=== PATIENT | female | born 1955 | race Caucasian/White ===

== ENCOUNTER 2021-12-11 08:40 | Inpatient (IN) ==
[2021-12-11] MEDS ORDERED: LORazepam 2 MG/1 ML VIAL IV STA ×2 (08:59→11:55)
[2021-12-11] MEDS ORDERED: SODIUM CHLORIDE 0.9% 1,000 ML IV STA ×2 (08:59→13:30)
[2021-12-11 09:44] LABS: Basophils # 0.1 10*3/uL (0.0-0.2); Basophils % 0.3 % (0.0-0.8); Hematocrit 30.9 VOL% (35.7-47.0); Hemoglobin 9.9 GM/DL (12.0-16.0); Immature Granulocytes % 0.9 %; Immature Granulocytes Absolute 0.14 #; Lymphocytes # 1.8 10*3/uL (1.4-4.0); Lymphocytes % 11.2 % (21.3-54.2); Mean Corpuscular Volume 106.2 FL (87-102); Mean Platelet Volume 9.4 FL (9.6-12.0); Monocytes # 0.9 10*3/uL (0.11-0.8); Monocytes % 5.8 % (1.7-12.7); Neutrophils % 81.8 % (38.7-73.9); Platelet Count 293 T/CUMM (130-400); Red Blood Count 2.91 MC/CUMM (3.8-5.5); Red Cell Distribution Width 16.6 % (9.3-17.3); White Blood Count 15.7 T/CUMM (4-12)
[2021-12-11 10:05] LABS: Albumin 3.4 G/DL (3.4-5.0); Bilirubin,Total 0.5 MG/DL (0.20-1.00); Calcium 7.9 MG/DL (8.5-10.1); Osmolality,Calculated 307.3 MOS/KG (273-304); Potassium 3.7 MMOL/L (3.5-5.1); Total Protein 6.7 G/DL (6.4-8.2)
[2021-12-11] MEDS ORDERED: LEVOFLOXACIN INJ 750 MG in PREMIX 1 EACH IV STA (10:21)
[2021-12-11 10:41] LABS: Amorphous Crystals,Urine Few /HPF (Few); Bilirubin,Urine Negative (Negative); Blood, Urine Negative (Negative); Glucose,Urine (UA) Negative (Negative); Hyaline Casts,Urine 9 /LPF (0-3); Ketones,Urine 20 mg/dL (Negative); Mucus,Urine Occasional /LPF (Occasional); Nitrite,Urine Negative (Negative); Protein,Urine Negative (Negative); RBC,Urine <1 /HPF (0-4); Urine Appearance CLEAR (Clear); Urine Color Yellow (Yellow); Urine Specific Gravity 1.027 (1.001-1.035); Urine Urobilinogen < 2.0 eU/dL (<2.0)
[2021-12-11 10:47] LABS: Barbiturates Screen,Urine Negative (Negative); Benzodiazepines Screen,Urine Negative (Negative); Cannabinoid Screen,Urine Negative (Negative); Opiate Screen,Urine Negative (Negative); Phencyclidine Screen,Urine Negative (Negative)
[2021-12-11] MEDS ORDERED: ALBUTEROL 2.5 MG/3 ML NEB RESP TX PRN (12:43)
[2021-12-11] MEDS ORDERED: NALOXONE 0.4 MG/ML VIAL IV STA (12:50)
[2021-12-11 13:06] LABS: Arterial Base Excess iSTAT -13 MMOL/L (-2.5-2.5); Arterial Bicarbonate iSTAT 13.5 MMOL/L (20-26); Arterial O2 Saturation iSTAT 49 % (95-100); Arterial PCO2 iSTAT 35 MM HG (35-48); Arterial PO2 iSTAT 32 MM HG (80-95); Arterial Total CO2 iSTAT 15 MMO/L (23-27); Arterial pH iSTAT 7.202 (7.35-7.45)
[2021-12-11] MEDS ORDERED: ROCURONIUM 100 MG/10 ML VIAL IV STA (13:09)
[2021-12-11 13:11] LABS: Folate > 24.00 NG/ML (5.38-24.0); Free T4 (Free Thyroxine) 0.51 NG/DL (0.76-1.46); Thyroid Stimulating Hormone 1.04 uIU/ml (0.358-3.74); Vitamin B12 324 PG/ML (211-911)
[2021-12-11] MEDS ORDERED: ETOMIDATE 20 MG/10 ML VIAL IV ONE ×2 (13:18→13:19)
[2021-12-11] MEDS ORDERED: methylPREDNISolone SOD SUC 125 MG/2 ML VIAL IV STA (13:19)
[2021-12-11] MEDS ORDERED: ROCURONIUM 100 MG/10 ML VIAL IV ONE (13:19)
[2021-12-11] MEDS: PANTOPRAZOLE 40 MG VIAL IV SCH (14:07)
[2021-12-11 14:10] LABS: Arterial Base Excess iSTAT -13 MMOL/L (-2.5-2.5); Arterial Bicarbonate iSTAT 15.7 MMOL/L (20-26); Arterial O2 Saturation iSTAT 100 % (95-100); Arterial PCO2 iSTAT 48 MM HG (35-48); Arterial PO2 iSTAT 325 MM HG (80-95); Arterial Total CO2 iSTAT 17 MMO/L (23-27); Arterial pH iSTAT 7.123 (7.35-7.45)
[2021-12-11] MEDS ORDERED: SODIUM BICARBONATE 50 MEQ/50 ML VIAL IV ONE (14:33)
[2021-12-11] MEDS ORDERED: CHARCOAL AQUEOUS 25 GM/120 ML BOTTLE PO ONE ×2 (14:37→15:00)
[2021-12-11 14:38] LABS: Calcium 7.6 MG/DL (8.5-10.1); Osmolality,Calculated 304.4 MOS/KG (273-304); Potassium 3.7 MMOL/L (3.5-5.1)
[2021-12-11] MEDS ORDERED: PIPERACILLIN/TAZOBACTAM 3,375 MG in SODIUM CHLORIDE 0.9% 100 ML IV SCH (15:00)
[2021-12-11 15:03] LABS: PT Patient Result 11.2 SECS (10.1-12.1); Partial Thromboplastin Time 29.6 SECS (23.7-32.9)
[2021-12-11 15:14] LABS: Calcium 7.3 MG/DL (8.5-10.1); Potassium 3.8 MMOL/L (3.5-5.1)
[2021-12-11] MEDS: SODIUM BICARB INJ 100 MEQ in DEXTROSE 5% 1,000 ML IV SCH (15:15)
[2021-12-11] MEDS: ENOXAPARIN 40 MG/0.4 ML SYRINGE SUBCUT SCH (15:15)
[2021-12-11] MEDS: CEFEPIME 1,000 MG in SODIUM CHLORIDE 0.9% 100 ML IV SCH (16:12)
[2021-12-11 18:29] LABS: Arterial Base Excess iSTAT -8 MMOL/L (-2.5-2.5); Arterial Bicarbonate iSTAT 16.7 MMOL/L (20-26); Arterial O2 Saturation iSTAT 99 % (95-100); Arterial PCO2 iSTAT 32 MM HG (35-48); Arterial PO2 iSTAT 145 MM HG (80-95); Arterial Total CO2 iSTAT 18 MMO/L (23-27); Arterial pH iSTAT 7.328 (7.35-7.45)
[2021-12-11] MEDS ORDERED: oxyCODONE IR 5 MG TABLET PO PRN (18:50)
[2021-12-11] MEDS: ALBUTEROL/IPRATROPIUM 3 ML NEB RESP TX SCH ×2 (19:22→23:56)
[2021-12-11] MEDS: MORPHINE 2 MG/1 ML SYRINGE IV PRN (19:34)
[2021-12-11 20:09] LABS: Calcium 6.9 MG/DL (8.5-10.1); Potassium 3.1 MMOL/L (3.5-5.1)
[2021-12-11] MEDS: methylPREDNISolone SOD SUC 40 MG/1 ML VIAL IV SCH (20:54)
[2021-12-11] MEDS: DULoxetine 30 MG CAPSULE PO SCH (20:54)
[2021-12-11] MEDS: GABAPENTIN 300 MG CAPSULE PO SCH (20:54)
[2021-12-11] MEDS ORDERED: CALCIUM GLUCONATE RIDER 1,000 MG/50 ML PREMIX IV ONE (20:56)
[2021-12-11] MEDS ORDERED: POTASSIUM CHLORIDE RIDER 10 MEQ/100 ML PREMIX IV PRN (20:57)
[2021-12-11] MEDS: POTASSIUM CHLORIDE RIDER 20 MEQ/100 ML PREMIX IV PRN ×2 (21:27→23:37)
[2021-12-11] MEDS ORDERED: MIDAZOLAM 10 MG/2 ML VIAL ONE (22:02)
[2021-12-11] MEDS ORDERED: MIDAZOLAM 2 MG/2 ML VIAL IV ONE (22:02)
[2021-12-11] MEDS: MIDAZOLAM 100 MG in SODIUM CHLORIDE 0.9% 80 ML IV PRN (22:16)
[2021-12-12] MEDS ORDERED: NOREPINEPHRINE 4 MG/4 ML VIAL IV ONE ×2 (01:45→13:43)
[2021-12-12] MEDS: NOREPINEPHRINE 8 MG in SODIUM CHLORIDE 0.9% 242 ML IV PRN ×3 (02:01→22:22)
[2021-12-12] MEDS: SODIUM BICARB INJ 100 MEQ in DEXTROSE 5% 1,000 ML IV SCH ×2 (02:14→12:32)
[2021-12-12] MEDS: CEFEPIME 1,000 MG in SODIUM CHLORIDE 0.9% 100 ML IV SCH ×3 (02:19→16:00)
[2021-12-12 04:22] LABS: Arterial Base Excess iSTAT -1 MMOL/L (-2.5-2.5); Arterial Bicarbonate iSTAT 22.6 MMOL/L (20-26); Arterial O2 Saturation iSTAT 100 % (95-100); Arterial PCO2 iSTAT 32 MM HG (35-48); Arterial PO2 iSTAT 185 MM HG (80-95); Arterial Total CO2 iSTAT 24 MMO/L (23-27); Arterial pH iSTAT 7.451 (7.35-7.45)
[2021-12-12] MEDS: MORPHINE 2 MG/1 ML SYRINGE IV PRN ×2 (04:30→07:01)
[2021-12-12 04:48] LABS: Basophils % 0.1 % (0.0-0.8); Hematocrit 25.3 VOL% (35.7-47.0); Hemoglobin 8.1 GM/DL (12.0-16.0); Immature Granulocytes Absolute 0.16 #; Lymphocytes # 1.9 10*3/uL (1.4-4.0); Lymphocytes % 11.7 % (21.3-54.2); Mean Corpuscular Volume 105.4 FL (87-102); Mean Platelet Volume 9.9 FL (9.6-12.0); Monocytes # 1.2 10*3/uL (0.11-0.8); Monocytes % 7.5 % (1.7-12.7); Neutrophils % 79.7 % (38.7-73.9); Platelet Count 294 T/CUMM (130-400); Red Cell Distribution Width 16.5 % (9.3-17.3); White Blood Count 16.3 T/CUMM (4-12)
[2021-12-12 05:06] LABS: Alanine Aminotransferase 43 U/L (13-56); Albumin 2.8 G/DL (3.4-5.0); Alkaline Phosphatase 95 U/L (45-117); Aspartate Amino Transferase 45 U/L (0-37); Bilirubin,Total < 0.39 MG/DL (0.20-1.00); Blood Urea Nitrogen 33 MG/DL (7-18); Carbon Dioxide 23 MMOL/L (21-32); Chloride 119 MMOL/L (98-107); Glucose 132 MG/DL (74-106); Osmolality,Calculated 304.1 MOS/KG (273-304); Potassium 3.2 MMOL/L (3.5-5.1); Sodium 149 MMOL/L (136-145); Total Protein 5.7 G/DL (6.4-8.2)
[2021-12-12] MEDS: methylPREDNISolone SOD SUC 40 MG/1 ML VIAL IV SCH ×3 (05:27→20:34)
[2021-12-12] MEDS: LEVOTHYROXINE 25 MCG TABLET PO SCH (05:27)
[2021-12-12] MEDS: POTASSIUM CHLORIDE RIDER 20 MEQ/100 ML PREMIX IV PRN ×2 (05:51→07:47)
[2021-12-12] MEDS: ALBUTEROL/IPRATROPIUM 3 ML NEB RESP TX SCH ×3 (07:05→19:19)
[2021-12-12] MEDS: GABAPENTIN 300 MG CAPSULE PO SCH ×2 (08:07→20:34)
[2021-12-12] MEDS: DULoxetine 30 MG CAPSULE PO SCH (08:22)
[2021-12-12] MEDS ORDERED: LACTATED RINGERS 1,000 ML IV ONE (08:33)
[2021-12-12] MEDS: QUEtiapine 100 MG TABLET PO SCH ×2 (08:38→20:34)
[2021-12-12] MEDS ORDERED: MORPHINE 2 MG/1 ML SYRINGE IV ONE (08:51)
[2021-12-12] MEDS ORDERED: QUEtiapine XR 50 MG TABLET PO SCH (09:00)
[2021-12-12] MEDS: fentaNYL INJ 1,250 MCG in SODIUM CHLORIDE 0.9% 225 ML IV PRN (09:08)
[2021-12-12] MEDS ORDERED: DEXTROSE 10% 250 ML BAG IV PRN (09:34)
[2021-12-12] MEDS ORDERED: GLUCAGON 1 MG VIAL IM PRN (09:34)
[2021-12-12 11:57] LABS: Arterial Base Excess iSTAT -1 MMOL/L (-2.5-2.5); Arterial Bicarbonate iSTAT 23.1 MMOL/L (20-26); Arterial O2 Saturation iSTAT 98 % (95-100); Arterial PCO2 iSTAT 35 MM HG (35-48); Arterial PO2 iSTAT 104 MM HG (80-95); Arterial Total CO2 iSTAT 24 MMO/L (23-27); Arterial pH iSTAT 7.433 (7.35-7.45)
[2021-12-12] MEDS: INSULIN LISPRO 100 UNIT/ML SUBCUT SCH ×2 (12:13→17:49)
[2021-12-12] MEDS: PANTOPRAZOLE 40 MG VIAL IV SCH (12:30)
[2021-12-12] MEDS: POTASSIUM BICARB EFFERVESCENT 20 MEQ TAB.EFF PER TUBE PRN ×2 (13:49→15:49)
[2021-12-12] MEDS: ENOXAPARIN 40 MG/0.4 ML SYRINGE SUBCUT SCH (14:00)
[2021-12-12] MEDS: MIDAZOLAM 100 MG in SODIUM CHLORIDE 0.9% 80 ML IV PRN (14:07)
[2021-12-13] MEDS: ALBUTEROL/IPRATROPIUM 3 ML NEB RESP TX SCH ×5 (00:27→23:50)
[2021-12-13] MEDS: CEFEPIME 1,000 MG in SODIUM CHLORIDE 0.9% 100 ML IV SCH ×3 (00:33→16:10)
[2021-12-13] MEDS: INSULIN LISPRO 100 UNIT/ML SUBCUT SCH ×4 (00:33→18:20)
[2021-12-13 04:49] LABS: Basophils % 0.1 % (0.0-0.8); Hematocrit 26.7 VOL% (35.7-47.0); Hemoglobin 8.3 GM/DL (12.0-16.0); Immature Granulocytes % 1.3 %; Immature Granulocytes Absolute 0.19 #; Lymphocytes # 1.1 10*3/uL (1.4-4.0); Lymphocytes % 7.8 % (21.3-54.2); Mean Corpuscular HGB Conc 31.1 GM/DL (32-36); Mean Corpuscular Volume 108.1 FL (87-102); Mean Platelet Volume 9.8 FL (9.6-12.0); Monocytes # 0.8 10*3/uL (0.11-0.8); Monocytes % 5.6 % (1.7-12.7); NRBC # 0.04 10*3/uL; Neutrophils % 85.2 % (38.7-73.9); Platelet Count 318 T/CUMM (130-400); Red Blood Count 2.47 MC/CUMM (3.8-5.5); Red Cell Distribution Width 16.5 % (9.3-17.3); White Blood Count 14.2 T/CUMM (4-12)
[2021-12-13 05:03] LABS: Alanine Aminotransferase 37 U/L (13-56); Albumin 2.8 G/DL (3.4-5.0); Alkaline Phosphatase 79 U/L (45-117); Aspartate Amino Transferase 31 U/L (0-37); Bilirubin,Total < 0.39 MG/DL (0.20-1.00); Blood Urea Nitrogen 28 MG/DL (7-18); Calcium 8.1 MG/DL (8.5-10.1); Carbon Dioxide 23 MMOL/L (21-32); Chloride 114 MMOL/L (98-107); Glucose 176 MG/DL (74-106); Osmolality,Calculated 297.7 MOS/KG (273-304); Potassium 4.2 MMOL/L (3.5-5.1); Sodium 145 MMOL/L (136-145); Total Protein 5.7 G/DL (6.4-8.2)
[2021-12-13 06:15] LABS: Arterial Base Excess iSTAT -2 MMOL/L (-2.5-2.5); Arterial Bicarbonate iSTAT 22.6 MMOL/L (20-26); Arterial O2 Saturation iSTAT 99 % (95-100); Arterial PCO2 iSTAT 36 MM HG (35-48); Arterial PO2 iSTAT 139 MM HG (80-95); Arterial Total CO2 iSTAT 24 MMO/L (23-27); Arterial pH iSTAT 7.412 (7.35-7.45)
[2021-12-13] MEDS: MIDAZOLAM 100 MG in SODIUM CHLORIDE 0.9% 80 ML IV PRN ×2 (06:20→23:34)
[2021-12-13] MEDS: methylPREDNISolone SOD SUC 40 MG/1 ML VIAL IV SCH ×3 (06:40→20:30)
[2021-12-13] MEDS: LEVOTHYROXINE 25 MCG TABLET PO SCH (06:41)
[2021-12-13] MEDS: NOREPINEPHRINE 8 MG in SODIUM CHLORIDE 0.9% 242 ML IV PRN (06:51)
[2021-12-13] MEDS: GABAPENTIN 300 MG CAPSULE PO SCH ×2 (09:09→20:16)
[2021-12-13] MEDS: QUEtiapine 100 MG TABLET PO SCH ×2 (09:09→20:16)
[2021-12-13] MEDS ORDERED: LACTATED RINGERS 1,000 ML IV ONE (10:03)
[2021-12-13] MEDS ORDERED: POTASSIUM PHOSPHATE 15 MMOL in SODIUM CHLORIDE 0.9% 100 ML IV ONE (11:00)
[2021-12-13] MEDS: PANTOPRAZOLE 40 MG VIAL IV SCH (12:02)
[2021-12-13] MEDS: ENOXAPARIN 40 MG/0.4 ML SYRINGE SUBCUT SCH (15:34)
[2021-12-13] MEDS: POTASSIUM PHOS/SOD PHOS POWDER 250 MG PACK PER TUBE SCH (20:16)
[2021-12-14] MEDS: INSULIN LISPRO 100 UNIT/ML SUBCUT SCH ×5 (00:09→23:47)
[2021-12-14] MEDS: CEFEPIME 1,000 MG in SODIUM CHLORIDE 0.9% 100 ML IV SCH ×3 (00:10→17:12)
[2021-12-14 04:02] LABS: Basophils % 0.1 % (0.0-0.8); Hematocrit 23.3 VOL% (35.7-47.0); Hemoglobin 7.2 GM/DL (12.0-16.0); Immature Granulocytes % 1.3 %; Immature Granulocytes Absolute 0.14 #; Lymphocytes # 1.3 10*3/uL (1.4-4.0); Lymphocytes % 12.4 % (21.3-54.2); Mean Corpuscular HGB Conc 30.9 GM/DL (32-36); Mean Corpuscular Volume 109.4 FL (87-102); Mean Platelet Volume 9.9 FL (9.6-12.0); Monocytes # 0.5 10*3/uL (0.11-0.8); Monocytes % 4.6 % (1.7-12.7); NRBC # 0.05 10*3/uL; Neutrophils % 81.6 % (38.7-73.9); Platelet Count 224 T/CUMM (130-400); Red Blood Count 2.13 MC/CUMM (3.8-5.5); Red Cell Distribution Width 16.4 % (9.3-17.3); White Blood Count 10.5 T/CUMM (4-12)
[2021-12-14 04:07] LABS: Arterial Base Excess iSTAT -2 MMOL/L (-2.5-2.5); Arterial Bicarbonate iSTAT 22.7 MMOL/L (20-26); Arterial O2 Saturation iSTAT 80 % (95-100); Arterial PCO2 iSTAT 35 MM HG (35-48); Arterial PO2 iSTAT 43 MM HG (80-95); Arterial Total CO2 iSTAT 24 MMO/L (23-27); Arterial pH iSTAT 7.421 (7.35-7.45)
[2021-12-14 04:19] LABS: Calcium 8.1 MG/DL (8.5-10.1); Osmolality,Calculated 291.8 MOS/KG (273-304); Phosphorous 1.8 MG/DL (2.5-4.9); Potassium 4.4 MMOL/L (3.5-5.1)
[2021-12-14 04:27] LABS: Arterial Base Excess iSTAT -2 MMOL/L (-2.5-2.5); Arterial Bicarbonate iSTAT 22.4 MMOL/L (20-26); Arterial O2 Saturation iSTAT 98 % (95-100); Arterial PCO2 iSTAT 36 MM HG (35-48); Arterial PO2 iSTAT 107 MM HG (80-95); Arterial Total CO2 iSTAT 23 MMO/L (23-27); Arterial pH iSTAT 7.403 (7.35-7.45)
[2021-12-14] MEDS: methylPREDNISolone SOD SUC 40 MG/1 ML VIAL IV SCH ×3 (05:20→20:30)
[2021-12-14] MEDS: LEVOTHYROXINE 25 MCG TABLET PO SCH (05:20)
[2021-12-14] MEDS: ALBUTEROL/IPRATROPIUM 3 ML NEB RESP TX SCH ×3 (07:32→19:40)
[2021-12-14] MEDS ORDERED: SODIUM CHLORIDE 0.9% 1,000 ML IV PRN (07:56)
[2021-12-14 08:14] LABS: % Iron Saturation 22.7 % (18-50); Ferritin 128.7 ng/mL (8-252)
[2021-12-14] MEDS: MORPHINE 2 MG/1 ML SYRINGE IV PRN (08:28)
[2021-12-14] MEDS: GABAPENTIN 300 MG CAPSULE PO SCH ×2 (09:33→20:19)
[2021-12-14] MEDS: POTASSIUM PHOS/SOD PHOS POWDER 250 MG PACK PER TUBE SCH ×2 (09:33→20:19)
[2021-12-14] MEDS: QUEtiapine 100 MG TABLET PO SCH ×2 (09:34→20:19)
[2021-12-14] MEDS: PANTOPRAZOLE 40 MG VIAL IV SCH (14:56)
[2021-12-14] MEDS: ENOXAPARIN 40 MG/0.4 ML SYRINGE SUBCUT SCH (14:57)
[2021-12-14] MEDS: NOREPINEPHRINE 8 MG in SODIUM CHLORIDE 0.9% 242 ML IV PRN (17:00)
[2021-12-14] MEDS: MIDAZOLAM 100 MG in SODIUM CHLORIDE 0.9% 80 ML IV PRN (19:54)
[2021-12-14 20:40] LABS: Hematocrit 30.9 VOL% (35.7-47.0); Hemoglobin 10.2 GM/DL (12.0-16.0)
[2021-12-14] MEDS: fentaNYL INJ 1,250 MCG in SODIUM CHLORIDE 0.9% 225 ML IV PRN (20:55)
[2021-12-15] MEDS: CEFEPIME 1,000 MG in SODIUM CHLORIDE 0.9% 100 ML IV SCH ×3 (00:16→16:10)
[2021-12-15] MEDS: ALBUTEROL/IPRATROPIUM 3 ML NEB RESP TX SCH ×4 (00:45→19:05)
[2021-12-15 04:30] LABS: Basophils % 0.1 % (0.0-0.8); Hematocrit 30.5 VOL% (35.7-47.0); Immature Granulocytes Absolute 0.12 #; Lymphocytes # 0.8 10*3/uL (1.4-4.0); Lymphocytes % 6.8 % (21.3-54.2); Mean Corpuscular HGB Conc 32.8 GM/DL (32-36); Mean Corpuscular Volume 97.8 FL (87-102); Mean Platelet Volume 9.8 FL (9.6-12.0); Monocytes # 0.5 10*3/uL (0.11-0.8); Monocytes % 4.4 % (1.7-12.7); NRBC # 0.03 10*3/uL; Neutrophils % 87.7 % (38.7-73.9); Platelet Count 208 T/CUMM (130-400); Red Blood Count 3.12 MC/CUMM (3.8-5.5); Red Cell Distribution Width 21.3 % (9.3-17.3); White Blood Count 11.5 T/CUMM (4-12)
[2021-12-15 04:30] LABS: Arterial Base Excess iSTAT -3 MMOL/L (-2.5-2.5); Arterial Bicarbonate iSTAT 21.4 MMOL/L (20-26); Arterial O2 Saturation iSTAT 93 % (95-100); Arterial PCO2 iSTAT 35 MM HG (35-48); Arterial PO2 iSTAT 66 MM HG (80-95); Arterial Total CO2 iSTAT 22 MMO/L (23-27); Arterial pH iSTAT 7.399 (7.35-7.45)
[2021-12-15 04:44] LABS: Calcium 7.8 MG/DL (8.5-10.1); Osmolality,Calculated 294.6 MOS/KG (273-304); Phosphorous 2.2 MG/DL (2.5-4.9)
[2021-12-15] MEDS: INSULIN LISPRO 100 UNIT/ML SUBCUT SCH ×3 (05:59→18:16)
[2021-12-15] MEDS: LEVOTHYROXINE 25 MCG TABLET PO SCH (06:02)
[2021-12-15] MEDS: methylPREDNISolone SOD SUC 40 MG/1 ML VIAL IV SCH ×2 (06:02→18:14)
[2021-12-15] MEDS ORDERED: FUROSEMIDE 40 MG/4 ML VIAL IV ONE (08:00)
[2021-12-15] MEDS: MORPHINE 2 MG/1 ML SYRINGE IV PRN (08:25)
[2021-12-15] MEDS: FERROUS SULFATE 300 MG/5 ML UDCUP PO SCH (08:26)
[2021-12-15] MEDS: QUEtiapine 100 MG TABLET PO SCH ×2 (08:27→20:15)
[2021-12-15] MEDS: POTASSIUM PHOS/SOD PHOS POWDER 250 MG PACK PER TUBE SCH ×2 (08:27→20:15)
[2021-12-15] MEDS: GABAPENTIN 300 MG CAPSULE PO SCH ×2 (08:27→20:15)
[2021-12-15] MEDS: PANTOPRAZOLE 40 MG VIAL IV SCH (13:32)
[2021-12-15] MEDS: ENOXAPARIN 40 MG/0.4 ML SYRINGE SUBCUT SCH (14:40)
[2021-12-15] MEDS: MIDAZOLAM 100 MG in SODIUM CHLORIDE 0.9% 80 ML IV PRN (16:50)
[2021-12-15] MEDS: fentaNYL INJ 1,250 MCG in SODIUM CHLORIDE 0.9% 225 ML IV PRN (23:25)
[2021-12-16] MEDS: INSULIN LISPRO 100 UNIT/ML SUBCUT SCH ×4 (00:28→17:55)
[2021-12-16] MEDS: ALBUTEROL/IPRATROPIUM 3 ML NEB RESP TX SCH ×4 (00:34→19:22)
[2021-12-16] MEDS: CEFEPIME 1,000 MG in SODIUM CHLORIDE 0.9% 100 ML IV SCH ×2 (00:42→08:15)
[2021-12-16] MEDS: MORPHINE 2 MG/1 ML SYRINGE IV PRN ×3 (02:39→23:50)
[2021-12-16 03:44] LABS: Basophils % 0.1 % (0.0-0.8); Hematocrit 29.6 VOL% (35.7-47.0); Hemoglobin 9.9 GM/DL (12.0-16.0); Immature Granulocytes % 1.8 %; Lymphocytes # 1.2 10*3/uL (1.4-4.0); Lymphocytes % 10.6 % (21.3-54.2); Mean Corpuscular HGB Conc 33.4 GM/DL (32-36); Mean Corpuscular Volume 98.3 FL (87-102); Mean Platelet Volume 9.8 FL (9.6-12.0); Monocytes # 0.4 10*3/uL (0.11-0.8); Monocytes % 3.9 % (1.7-12.7); NRBC # 0.03 10*3/uL; Neutrophils % 83.6 % (38.7-73.9); Platelet Count 193 T/CUMM (130-400); Red Blood Count 3.01 MC/CUMM (3.8-5.5); Red Cell Distribution Width 20.8 % (9.3-17.3); White Blood Count 10.9 T/CUMM (4-12)
[2021-12-16 04:07] LABS: Calcium 7.7 MG/DL (8.5-10.1); Osmolality,Calculated 291.7 MOS/KG (273-304); Potassium 4.1 MMOL/L (3.5-5.1)
[2021-12-16 04:23] LABS: Arterial Base Excess iSTAT 2 MMOL/L (-2.5-2.5); Arterial Bicarbonate iSTAT 26.1 MMOL/L (20-26); Arterial O2 Saturation iSTAT 97 % (95-100); Arterial PCO2 iSTAT 38 MM HG (35-48); Arterial PO2 iSTAT 88 MM HG (80-95); Arterial Total CO2 iSTAT 27 MMO/L (23-27); Arterial pH iSTAT 7.446 (7.35-7.45)
[2021-12-16] MEDS: methylPREDNISolone SOD SUC 40 MG/1 ML VIAL IV SCH ×2 (06:00→17:12)
[2021-12-16] MEDS: LEVOTHYROXINE 25 MCG TABLET PO SCH (06:00)
[2021-12-16] MEDS: FERROUS SULFATE 300 MG/5 ML UDCUP PO SCH (08:15)
[2021-12-16] MEDS: POTASSIUM PHOS/SOD PHOS POWDER 250 MG PACK PER TUBE SCH ×2 (08:15→20:15)
[2021-12-16] MEDS: GABAPENTIN 300 MG CAPSULE PO SCH ×2 (08:15→20:15)
[2021-12-16] MEDS: QUEtiapine 100 MG TABLET PO SCH ×2 (08:16→20:16)
[2021-12-16] MEDS: cefTRIAXone 1,000 MG in SODIUM CHLORIDE 0.9% 100 ML IV SCH (10:28)
[2021-12-16] MEDS ORDERED: FUROSEMIDE 40 MG/4 ML VIAL IV ONE (10:36)
[2021-12-16] MEDS: SENNA 8.6 MG TABLET PO SCH ×2 (10:59→20:15)
[2021-12-16] MEDS: POLYETHYLENE GLYCOL POWDER 17 GM PACK PO SCH (10:59)
[2021-12-16] MEDS: MIDAZOLAM 100 MG in SODIUM CHLORIDE 0.9% 80 ML IV PRN (12:15)
[2021-12-16] MEDS: PANTOPRAZOLE 40 MG VIAL IV SCH (14:00)
[2021-12-16] MEDS: ENOXAPARIN 40 MG/0.4 ML SYRINGE SUBCUT SCH (14:03)
[2021-12-17] MEDS: INSULIN LISPRO 100 UNIT/ML SUBCUT SCH ×4 (00:08→17:09)
[2021-12-17] MEDS: ALBUTEROL/IPRATROPIUM 3 ML NEB RESP TX SCH ×4 (00:16→19:35)
[2021-12-17] MEDS: MIDAZOLAM 100 MG in SODIUM CHLORIDE 0.9% 80 ML IV PRN (02:12)
[2021-12-17 03:54] LABS: Arterial Base Excess iSTAT 7 MMOL/L (-2.5-2.5); Arterial Bicarbonate iSTAT 31.2 MMOL/L (20-26); Arterial O2 Saturation iSTAT 99 % (95-100); Arterial PCO2 iSTAT 40 MM HG (35-48); Arterial PO2 iSTAT 112 MM HG (80-95); Arterial Total CO2 iSTAT 32 MMO/L (23-27); Arterial pH iSTAT 7.497 (7.35-7.45)
[2021-12-17 05:07] LABS: Basophils % 0.2 % (0.0-0.8); Eosinophils % 0.1 % (0.00-10.9); Hematocrit 33.1 VOL% (35.7-47.0); Hemoglobin 10.9 GM/DL (12.0-16.0); Immature Granulocytes % 2.4 %; Lymphocytes # 1.4 10*3/uL (1.4-4.0); Lymphocytes % 11.2 % (21.3-54.2); Mean Corpuscular HGB Conc 32.9 GM/DL (32-36); Mean Corpuscular Volume 99.1 FL (87-102); Mean Platelet Volume 10.2 FL (9.6-12.0); Monocytes # 0.4 10*3/uL (0.11-0.8); Monocytes % 3.1 % (1.7-12.7); Platelet Count 204 T/CUMM (130-400); Red Blood Count 3.34 MC/CUMM (3.8-5.5); Red Cell Distribution Width 19.4 % (9.3-17.3); White Blood Count 12.5 T/CUMM (4-12)
[2021-12-17 05:40] LABS: Calcium 8.2 MG/DL (8.5-10.1); Potassium 3.8 MMOL/L (3.5-5.1)
[2021-12-17] MEDS: methylPREDNISolone SOD SUC 40 MG/1 ML VIAL IV SCH ×2 (06:37→17:03)
[2021-12-17] MEDS: LEVOTHYROXINE 25 MCG TABLET PO SCH (06:38)
[2021-12-17] MEDS: MORPHINE 2 MG/1 ML SYRINGE IV PRN ×4 (06:51→20:48)
[2021-12-17] MEDS: FERROUS SULFATE 300 MG/5 ML UDCUP PO SCH (08:00)
[2021-12-17] MEDS: SENNA 8.6 MG TABLET PO SCH ×2 (08:00→20:48)
[2021-12-17] MEDS: POLYETHYLENE GLYCOL POWDER 17 GM PACK PO SCH (08:00)
[2021-12-17] MEDS: GABAPENTIN 300 MG CAPSULE PO SCH ×2 (08:00→20:48)
[2021-12-17] MEDS: POTASSIUM PHOS/SOD PHOS POWDER 250 MG PACK PER TUBE SCH ×2 (08:00→20:48)
[2021-12-17] MEDS: QUEtiapine 100 MG TABLET PO SCH ×2 (08:00→20:48)
[2021-12-17] MEDS: cefTRIAXone 1,000 MG in SODIUM CHLORIDE 0.9% 100 ML IV SCH (09:31)
[2021-12-17] MEDS ORDERED: FUROSEMIDE 40 MG/4 ML VIAL IV ONE (09:46)
[2021-12-17] MEDS: oxyCODONE IR 5 MG TABLET PO PRN (11:09)
[2021-12-17] MEDS: POTASSIUM BICARB EFFERVESCENT 20 MEQ TAB.EFF PER TUBE PRN (11:09)
[2021-12-17] MEDS: PANTOPRAZOLE 40 MG VIAL IV SCH (13:21)
[2021-12-17] MEDS ORDERED: METOPROLOL TARTRATE 5 MG/5 ML VIAL IV ONE (14:41)
[2021-12-17] MEDS ORDERED: METOPROLOL TARTRATE 5 MG/5 ML VIAL IV PRN (14:41)
[2021-12-17] MEDS: ENOXAPARIN 40 MG/0.4 ML SYRINGE SUBCUT SCH (14:42)
[2021-12-17] MEDS: DULoxetine 30 MG CAPSULE PO SCH (20:48)
[2021-12-17] MEDS: ONDANSETRON 4 MG/2 ML VIAL IV PRN (21:11)
[2021-12-18] MEDS: oxyCODONE IR 5 MG TABLET PO PRN (00:28)
[2021-12-18] MEDS: INSULIN LISPRO 100 UNIT/ML SUBCUT SCH ×4 (00:29→17:03)
[2021-12-18] MEDS: ONDANSETRON 4 MG/2 ML VIAL IV PRN ×2 (01:12→14:53)
[2021-12-18] MEDS: MORPHINE 2 MG/1 ML SYRINGE IV PRN (01:12)
[2021-12-18] MEDS: ALBUTEROL/IPRATROPIUM 3 ML NEB RESP TX SCH ×4 (01:33→19:25)
[2021-12-18] MEDS ORDERED: PROMETHAZINE 25 MG/1 ML VIAL IM ONE (02:00)
[2021-12-18 03:46] LABS: Basophils % 0.1 % (0.0-0.8); Eosinophils % 0.1 % (0.00-10.9); Hematocrit 34.6 VOL% (35.7-47.0); Hemoglobin 11.3 GM/DL (12.0-16.0); Immature Granulocytes % 1.6 %; Immature Granulocytes Absolute 0.24 #; Lymphocytes % 6.5 % (21.3-54.2); Mean Corpuscular HGB Conc 32.7 GM/DL (32-36); Mean Corpuscular Volume 97.5 FL (87-102); Mean Platelet Volume 10.5 FL (9.6-12.0); Monocytes # 0.6 10*3/uL (0.11-0.8); Monocytes % 3.9 % (1.7-12.7); Neutrophils % 87.8 % (38.7-73.9); Platelet Count 190 T/CUMM (130-400); Red Blood Count 3.55 MC/CUMM (3.8-5.5); Red Cell Distribution Width 18.1 % (9.3-17.3)
[2021-12-18 04:04] LABS: Albumin 2.9 G/DL (3.4-5.0); Calcium 8.9 MG/DL (8.5-10.1); Osmolality,Calculated 282.3 MOS/KG (273-304); Phosphorous 3.5 MG/DL (2.5-4.9); Potassium 3.9 MMOL/L (3.5-5.1); Total Protein 6.1 G/DL (6.4-8.2)
[2021-12-18 04:41] LABS: Arterial Base Excess iSTAT 7 MMOL/L (-2.5-2.5); Arterial Bicarbonate iSTAT 31.7 MMOL/L (20-26); Arterial O2 Saturation iSTAT 97 % (95-100); Arterial PCO2 iSTAT 46 MM HG (35-48); Arterial PO2 iSTAT 92 MM HG (80-95); Arterial Total CO2 iSTAT 33 MMO/L (23-27); Arterial pH iSTAT 7.447 (7.35-7.45)
[2021-12-18] MEDS: LEVOTHYROXINE 25 MCG TABLET PO SCH (06:20)
[2021-12-18] MEDS: methylPREDNISolone SOD SUC 40 MG/1 ML VIAL IV SCH ×2 (06:20→21:11)
[2021-12-18] MEDS: POLYETHYLENE GLYCOL POWDER 17 GM PACK PO SCH (08:34)
[2021-12-18] MEDS: POTASSIUM PHOS/SOD PHOS POWDER 250 MG PACK PER TUBE SCH (08:34)
[2021-12-18] MEDS: QUEtiapine 100 MG TABLET PO SCH ×2 (08:35→21:07)
[2021-12-18] MEDS: GABAPENTIN 300 MG CAPSULE PO SCH ×2 (08:35→21:07)
[2021-12-18] MEDS: DULoxetine 30 MG CAPSULE PO SCH ×2 (08:35→21:07)
[2021-12-18] MEDS: SENNA 8.6 MG TABLET PO SCH ×2 (08:35→21:07)
[2021-12-18] MEDS: FERROUS SULFATE 300 MG/5 ML UDCUP PO SCH (08:35)
[2021-12-18] MEDS: cefTRIAXone 1,000 MG in SODIUM CHLORIDE 0.9% 100 ML IV SCH (11:18)
[2021-12-18] MEDS: oxyCODONE/ACETAMINOPHEN 5-325 MG TABLET PO PRN ×2 (11:19→21:07)
[2021-12-18] MEDS: PANTOPRAZOLE 40 MG VIAL IV SCH (14:49)
[2021-12-18] MEDS: ENOXAPARIN 40 MG/0.4 ML SYRINGE SUBCUT SCH (16:35)
[2021-12-19] MEDS: INSULIN LISPRO 100 UNIT/ML SUBCUT SCH ×5 (00:16→20:50)
[2021-12-19] MEDS: ALBUTEROL/IPRATROPIUM 3 ML NEB RESP TX SCH ×5 (00:29→23:56)
[2021-12-19] MEDS: oxyCODONE IR 5 MG TABLET PO PRN (00:37)
[2021-12-19] MEDS: LEVOTHYROXINE 25 MCG TABLET PO SCH (07:05)
[2021-12-19] MEDS: FERROUS SULFATE 300 MG/5 ML UDCUP PO SCH (08:38)
[2021-12-19] MEDS: DULoxetine 30 MG CAPSULE PO SCH ×2 (08:38→20:49)
[2021-12-19] MEDS: POLYETHYLENE GLYCOL POWDER 17 GM PACK PO SCH (08:38)
[2021-12-19] MEDS: GABAPENTIN 300 MG CAPSULE PO SCH ×2 (08:39→20:50)
[2021-12-19] MEDS: SENNA 8.6 MG TABLET PO SCH ×2 (08:39→20:50)
[2021-12-19] MEDS: methylPREDNISolone SOD SUC 40 MG/1 ML VIAL IV SCH ×2 (08:40→23:31)
[2021-12-19] MEDS: QUEtiapine 100 MG TABLET PO SCH ×2 (08:40→20:50)
[2021-12-19] MEDS: oxyCODONE/ACETAMINOPHEN 5-325 MG TABLET PO PRN ×3 (08:41→20:50)
[2021-12-19] MEDS: cefTRIAXone 1,000 MG in SODIUM CHLORIDE 0.9% 100 ML IV SCH (11:46)
[2021-12-19] MEDS ORDERED: MIDAZOLAM 2 MG/2 ML VIAL ONE (13:09)
[2021-12-19] MEDS ORDERED: HYDROmorphone 1 MG/1 ML SYRINGE ONE (13:09)
[2021-12-19] MEDS ORDERED: NITROGLYCERIN DRIP 50 MG/250 ML BOTTLE IV ONE (13:15)
[2021-12-19] MEDS ORDERED: VERAPAMIL 5 MG/2 ML VIAL ONE (13:15)
[2021-12-19] MEDS ORDERED: ENOXAPARIN 60 MG/0.6 ML SYRINGE ONE (13:26)
[2021-12-19] MEDS: PANTOPRAZOLE 40 MG VIAL IV SCH (13:51)
[2021-12-19] MEDS: PANTOPRAZOLE 40 MG TABLET PO SCH (14:56)
[2021-12-19] MEDS: ENOXAPARIN 40 MG/0.4 ML SYRINGE SUBCUT SCH (14:56)
[2021-12-19] MEDS: CEFUROXIME 500 MG TABLET PO SCH (20:50)
[2021-12-20] MEDS: methylPREDNISolone SOD SUC 40 MG/1 ML VIAL IM SCH ×2 (00:21→08:26)
[2021-12-20] MEDS: oxyCODONE/ACETAMINOPHEN 5-325 MG TABLET PO PRN (03:52)
[2021-12-20] MEDS: LEVOTHYROXINE 25 MCG TABLET PO SCH (06:04)
[2021-12-20] MEDS: ALBUTEROL/IPRATROPIUM 3 ML NEB RESP TX SCH ×2 (07:05→13:10)
[2021-12-20 07:53] VITALS: BP 103/69
[2021-12-20] MEDS: SENNA 8.6 MG TABLET PO SCH (08:23)
[2021-12-20] MEDS: PANTOPRAZOLE 40 MG TABLET PO SCH (08:24)
[2021-12-20] MEDS: FERROUS SULFATE 300 MG/5 ML UDCUP PO SCH (08:24)
[2021-12-20] MEDS: DULoxetine 30 MG CAPSULE PO SCH (08:24)
[2021-12-20] MEDS: GABAPENTIN 300 MG CAPSULE PO SCH (08:24)
[2021-12-20] MEDS: POLYETHYLENE GLYCOL POWDER 17 GM PACK PO SCH (08:24)
[2021-12-20] MEDS: CEFUROXIME 500 MG TABLET PO SCH (08:24)
[2021-12-20] MEDS: QUEtiapine 100 MG TABLET PO SCH (08:24)
[2021-12-20] MEDS: INSULIN LISPRO 100 UNIT/ML SUBCUT SCH ×2 (08:25→11:26)
== END 2021-12-20 14:00 | disposition home health service (06) | DRG 917 ==
LOC: N.ED 08:40 → SUATTDRO 12:43 → N.EDINP 12:43 → N.CC 14:24
PROVIDERS: ADMIT Family Medicine; ATTEND Internal Medicine